=== PATIENT | female | born 1960 | race Caucasian/White ===

== ENCOUNTER → 2016-11-08 | Outpatient (CLI) | payer BC ==
--- NOTE | 2016-11-09 13:55 | MM ---
Reason for exam: screening (asymptomatic). Last mammogram was performed 1 year ago. History: Patient is postmenopausal and has history of other cancer at age 31. Physical Findings: A clinical breast exam by your physician is recommended on an annual basis and results should be correlated with mammographic findings. MG Screening Mammo w CAD Bilateral CC and MLO view(s) were taken. Prior study comparison: November 06, 2015, bilateral MG screening mammo w CAD. There are scattered fibroglandular densities. There is no discrete abnormality. ASSESSMENT: Negative, BI-RAD 1 RECOMMENDATION: Routine screening mammogram of both breasts in 1 year.
== END | disposition home or self-care (01) ==
LOC: RADMAMWWP 14:38
PROVIDERS: ATTEND Internal Medicine
DX: Z12.31 Encounter for screening mammogram for malignant neoplasm of breast (principal)

== ENCOUNTER → 2017-11-10 | Outpatient (CLI) | payer BC ==
--- NOTE | 2017-11-14 08:07 | MM ---
Reason for exam: screening (asymptomatic). Last mammogram was performed 1 year ago. History: Patient is postmenopausal and has history of other cancer at age 31. Physical Findings: A clinical breast exam by your physician is recommended on an annual basis and results should be correlated with mammographic findings. MG Screening Mammo w CAD Bilateral CC and MLO view(s) were taken. Prior study comparison: November 08, 2016, bilateral MG screening mammo w CAD. November 06, 2015, bilateral MG screening mammo w CAD. There are scattered fibroglandular densities. No significant changes when compared with prior studies. ASSESSMENT: Negative, BI-RAD 1 RECOMMENDATION: Routine screening mammogram of both breasts in 1 year.
== END ==
LOC: RADMAMWWP 08:41
PROVIDERS: ATTEND Internal Medicine
DX: Z12.31 Encounter for screening mammogram for malignant neoplasm of breast (principal)
CPT/HCPCS: 77067

== ENCOUNTER → 2019-12-11 | Outpatient (CLI) | payer BC ==
--- NOTE | 2019-12-12 14:54 | MM ---
Reason for exam: screening (asymptomatic). Last mammogram was performed 1 year and 1 month ago. History: Patient is postmenopausal and has history of other cancer at age 31. Physical Findings: A clinical breast exam by your physician is recommended on an annual basis and results should be correlated with mammographic findings. MG Screening Mammo w CAD Bilateral CC and MLO view(s) were taken. Prior study comparison: November 21, 2018, bilateral MG screening mammo w CAD. November 10, 2017, bilateral MG screening mammo w CAD. There are scattered fibroglandular densities. No significant changes when compared with prior studies. ASSESSMENT: Benign, BI-RAD 2 RECOMMENDATION: Routine screening mammogram of both breasts in 1 year.
== END | disposition home or self-care (01) ==
LOC: RADMAMWWP 13:07
PROVIDERS: ATTEND Internal Medicine
DX: Z12.31 Encounter for screening mammogram for malignant neoplasm of breast (principal)
CPT/HCPCS: 77067

== ENCOUNTER 2020-07-20 14:32 | Inpatient (IN) | payer BC ==
--- NOTE | 2020-07-20 14:53 | ED ---
SOB HPI - General Chief Complaint: Shortness of Breath Stated Complaint: +COVID, SOB Time Seen by Provider: 07/20/20 14:53 Source: patient Mode of arrival: ambulatory Limitations: no limitations - History of Present Illness Initial Comments: Layne is a previously healthy 60-year-old female who presents the ER today for evaluation of progressively worsening shortness of breath. Patient received her first COVID vaccine on July 11, she reports she began feeling sick around Tuesday the . She tested positive for COVID 19 on Tuesday and has had progressively worsening shortness of breath since that time. She reports subjective fevers body aches and generalized malaise. Denies any productive cough chest pain, nausea or vomiting. - Related Data Home Medications Medication Instructions Recorded Confirmed Amitriptyline HCl 25 mg PO HS 07/20/20 07/20/20 Ascorbic Acid [Vitamin C] 500 mg PO DAILY 07/20/20 07/20/20 Cholecalciferol [Vitamin D3 (25 25 mcg PO DAILY 07/20/20 07/20/20 Mcg = 1000 Iu)] Multivitamins, Thera [Multivitamin 1 tab PO DAILY 07/20/20 07/20/20 (formulary)] Pravastatin Sodium [Pravachol] 40 mg PO HS 07/20/20 07/20/20 SUMAtriptan succinate [Sumatriptan 100 mg PO DAILY PRN 07/20/20 07/20/20 Succinate] Vit C/E/Zn/Coppr/Lutein/Zeaxan 1 cap PO BID 07/20/20 07/20/20 [Preservision Areds 2 Softgel] Zinc 50 mg PO DAILY 07/20/20 07/20/20 Allergies Allergy/AdvReac Type Severity Reaction Status Date / Time No Known Allergies Allergy Verified 07/20/20 16:27 Review of Systems ROS Statement: Those systems with pertinent positive or pertinent negative responses have been documented in the HPI. ROS Other: All systems not noted in ROS Statement are negative. Past Medical History Past Medical History: Hyperlipidemia Additional Past Medical History / Comment(s): mirgains History of Any Multi-Drug Resistant Organisms: None Reported Past Surgical History: No Surgical Hx Reported Smoking Status: Former smoker Past Alcohol Use History: None Reported Past Drug Use History: None Reported General Exam - General Exam Comments Initial Comments: Physical Exam GENERAL: Ill appearing female HENT: Normocephalic, Atraumatic. EYES: PERRL, EOMI PULMONARY: Tachypnea CARDIOVASCULAR: RRR ABDOMEN: Soft and nontender with normal bowel sounds. SKIN: Appears dehydrated : Deferred NEUROLOGIC: Patient is alert and oriented x3. Moving all extremities spontaneously MUSCULOSKELETAL: Normal extremities with adequate strength and full range of motion. No lower extremity swelling or edema. No calf tenderness. PSYCHIATRIC: Normal psychiatric evaluation. Limitations: no limitations Course Vital Signs 07/20/20 07/20/20 07/20/20 14:46 15:06 15:51 Temperature 99.1 F 100.6 F H Pulse Rate 102 H 92 Respiratory 18 18 Rate Blood Pressure 99/62 O2 Sat by Pulse 93 L 96 Oximetry 07/20/20 16:38 Temperature Pulse Rate 96 Respiratory 18 Rate Blood Pressure O2 Sat by Pulse 98 Oximetry Medical Decision Making - Medical Decision Making The patient was seen and evaluated history is obtained from patient healthy 60-year-old female with worsening COVID symptoms labs and imaging were ordered x-ray shows bilateral patchy infiltrate consistent with COVID pneumonia Given the patient's oxygen saturation of 93% on room air at rest, bilateral COVID pneumonia I do feel she is high risk for decompensation she is not a candidate for Bam due to having no comorbidities I would recommend admission for supplemental oxygenation and further treatment. This plan was discussed with the patient who is agreeable. Patient care was discussed with Dr. Rodrigues agrees with plan for admission, Decadron, Lovenox and Remdesivir - Lab Data Result diagrams: 07/20/20 15:28 07/20/20 15:28 Lab Results 07/20/20 07/20/20 07/20/20 Range/Units 15:28 15:28 16:07 WBC 4.1 (3.8-10.6) k/uL RBC 4.71 (3.80-5.40) m/uL Hgb 14.7 (11.4-16.0) gm/dL Hct 41.9 (34.0-46.0) % MCV 88.8 (80.0-100.0) fL MCH 31.1 (25.0-35.0) pg MCHC 35.0 (31.0-37.0) g/dL RDW 12.1 (11.5-15.5) % Plt Count 203 (150-450) k/uL MPV 6.9 Neutrophils % 73 % Lymphocytes % 20 % Monocytes % 4 % Eosinophils % 1 % Basophils % 1 % Neutrophils # 3.0 (1.3-7.7) k/uL Lymphocytes # 0.8 L (1.0-4.8) k/uL Monocytes # 0.2 (0-1.0) k/uL Eosinophils # 0.0 (0-0.7) k/uL Basophils # 0.0 (0-0.2) k/uL PT 10.8 (9.0-12.0) sec INR 1.0 (<1.2) APTT 22.4 (22.0-30.0) sec D-Dimer 0.71 H (<0.60) mg/L FEU Sodium 135 L (137-145) mmol/L Potassium 4.1 (3.5-5.1) mmol/L Chloride 97 L (98-107) mmol/L Carbon Dioxide 28 (22-30) mmol/L Anion Gap 10 mmol/L BUN 16 (7-17) mg/dL Creatinine 0.85 (0.52-1.04) mg/dL Est GFR (CKD-EPI)AfAm 86 (>60 ml/min/1.73 sqM) Est GFR (CKD-EPI)NonAf 75 (>60 ml/min/1.73 sqM) Glucose 116 H (74-99) mg/dL Plasma Lactic Acid Caden (0.7-2.0) mmol/L Calcium 8.9 (8.4-10.2) mg/dL Magnesium 2.0 (1.6-2.3) mg/dL Total Bilirubin 0.6 (0.2-1.3) mg/dL AST 71 H (14-36) U/L ALT 47 H (4-34) U/L Alkaline Phosphatase 80 (38-126) U/L Lactate Dehydrogenase (313-618) U/L C-Reactive Protein (<10.0) mg/L Total Protein 7.2 (6.3-8.2) g/dL Albumin 3.8 (3.5-5.0) g/dL 07/20/20 07/20/20 Range/Units 16:07 16:15 WBC (3.8-10.6) k/uL RBC (3.80-5.40) m/uL Hgb (11.4-16.0) gm/dL Hct (34.0-46.0) % MCV (80.0-100.0) fL MCH (25.0-35.0) pg MCHC (31.0-37.0) g/dL RDW (11.5-15.5) % Plt Count (150-450) k/uL MPV Neutrophils % % Lymphocytes % % Monocytes % % Eosinophils % % Basophils % % Neutrophils # (1.3-7.7) k/uL Lymphocytes # (1.0-4.8) k/uL Monocytes # (0-1.0) k/uL Eosinophils # (0-0.7) k/uL Basophils # (0-0.2) k/uL PT (9.0-12.0) sec INR (<1.2) APTT (22.0-30.0) sec D-Dimer (<0.60) mg/L FEU Sodium (137-145) mmol/L Potassium (3.5-5.1) mmol/L Chloride (98-107) mmol/L Carbon Dioxide (22-30) mmol/L Anion Gap mmol/L BUN (7-17) mg/dL Creatinine (0.52-1.04) mg/dL Est GFR (CKD-EPI)AfAm (>60 ml/min/1.73 sqM) Est GFR (CKD-EPI)NonAf (>60 ml/min/1.73 sqM) Glucose (74-99) mg/dL Plasma Lactic Acid Caden 1.1 (0.7-2.0) mmol/L Calcium (8.4-10.2) mg/dL Magnesium (1.6-2.3) mg/dL Total Bilirubin (0.2-1.3) mg/dL AST (14-36) U/L ALT (4-34) U/L Alkaline Phosphatase (38-126) U/L Lactate Dehydrogenase 1046 H (313-618) U/L C-Reactive Protein 59.4 H (<10.0) mg/L Total Protein (6.3-8.2) g/dL Albumin (3.5-5.0) g/dL - EKG Data -: EKG Interpreted by Oh EKG Comments: EKG obtained due to complaint of shortness of breath, EKG was obtained at 1511, rate is 88 rhythm is sinus normal axis normal intervals no acute ST elevations or depressions or evidence of acute ischemia or infarction. Respiratory artifact was noted. Disposition Clinical Impression: COVID-19 Disposition: ADMITTED IP TO THIS HOSP Condition: Serious Is patient prescribed a controlled substance at d/c from ED?: No Referrals: Nataly العلي MD [Primary Care Provider] - 1-2 days
[2020-07-20] MEDS ORDERED: SODIUM CHLORIDE 0.9% 1,000 ML IV STA (15:12)
[2020-07-20 15:35] LABS: Basophils % (A) 1 %; Eosinophils % (A) 1 %; HCT 41.9 % (34.0-46.0); HGB 14.7 gm/dL (11.4-16.0); Lymphocytes # (A) 0.8 k/uL (1.0-4.8); Lymphocytes % (A) 20 %; MCH 31.1 pg (25.0-35.0); MCV 88.8 fL (80.0-100.0); Mean Platelet Volume 6.9; Monocytes # (A) 0.2 k/uL (0-1.0); Monocytes % (A) 4 %; Neutrophils % (A) 73 %; Platelet Count 203 k/uL (150-450); RBC 4.71 m/uL (3.80-5.40); RDW 12.1 % (11.5-15.5); WBC 4.1 k/uL (3.8-10.6)
[2020-07-20 15:46] LABS: Albumin 3.8 g/dL (3.5-5.0); Calcium 8.9 mg/dL (8.4-10.2); Potassium 4.1 mmol/L (3.5-5.1); Total Bilirubin 0.6 mg/dL (0.2-1.3); Total Protein 7.2 g/dL (6.3-8.2)
--- NOTE | 2020-07-20 15:50 | XR ---
EXAMINATION TYPE: XR chest 1V portable DATE OF EXAM: 07/20/2020 COMPARISON: NONE HISTORY: Short of breath TECHNIQUE: Single view FINDINGS: There is bilateral patchy interstitial and airspace infiltrates in upper and lower lobes. T here is more density in the right upper lobe and left lower lobe. Heart size is normal. There are no hilar masses. There is no heart failure. There is no sign of pleural effusion. IMPRESSION: Bilateral patchy pneumonia. Normal heart.
[2020-07-20 16:30] LABS: C Reactive Protein 59.4 mg/L (<10.0)
[2020-07-20 16:31] LABS: Partial Thromboplastin Time 22.4 sec (22.0-30.0); Prothrombin Time 10.8 sec (9.0-12.0)
[2020-07-20] MEDS ORDERED: ACETAMINOPHEN TAB 325 MG TAB PO PRN (16:34)
[2020-07-20] MEDS ORDERED: IBUPROFEN 400 MG TAB PO PRN (16:34)
[2020-07-20] MEDS ORDERED: NALOXONE 0.4 MG/ML 1 ML VIAL IV PRN (16:34)
[2020-07-20 16:42] LABS: D-Dimer 0.71 mg/L FEU (<0.60)
[2020-07-20] MEDS: DEXAMETHASONE SOD PHOSPHATE 10 MG/ML 1 ML VIAL IV SCH (16:49)
[2020-07-20] MEDS: PRAVASTATIN SODIUM 40 MG TAB PO SCH (21:39)
[2020-07-20] MEDS: AMITRIPTYLINE HCL 25 MG TAB PO SCH (21:39)
[2020-07-21] MEDS: DEXAMETHASONE SOD PHOSPHATE 10 MG/ML 1 ML VIAL IV SCH (08:45)
[2020-07-21] MEDS ORDERED: ZINC SULFATE 220 MG CAP PO SCH (09:00)
[2020-07-21] MEDS ORDERED: ENOXAPARIN 80 MG/0.8 ML SYRINGE SQ SCH (09:00)
[2020-07-21] MEDS ORDERED: ASCORBIC ACID 500 MG TAB PO SCH (09:00)
[2020-07-21 10:39] VITALS: RESP 16
[2020-07-21 10:40] LABS: Ferritin 638.2 ng/mL (10.0-291.0)
[2020-07-21] MEDS ORDERED: REMDESIVIR 200 MG in SODIUM CHLORIDE 0.9% 250 ML IVPB ONE (12:00)
[2020-07-21] MEDS: FAMOTIDINE 20 MG TAB PO SCH ×2 (12:25→20:39)
[2020-07-21] MEDS ORDERED: SUMAtriptan succinate 50 MG TAB PO PRN (13:11)
--- NOTE | 2020-07-21 13:12 | P.HPIM ---
History of Present Illness Layne is a previously healthy 60-year-old female who presents the ER for progressively worsening shortness of breath. Patient received her first COVID vaccine on July 11, she reports she began feeling sick around the . She tested positive for COVID 19 on Tuesday and has had progressively worsening shortness of breath since that time. She reports subjective fevers body aches and generalized malaise. Denies any productive cough chest pain, nausea or vomiting. Patient does have significant infiltrate bilaterally consistent with the Covid pneumonia. Patient had 1 episode of hypoxemia. Patient is not a candidate for monoclonal antibody or Remdesivir as the duration of symptoms side about 10 days. HEENT had elevated intermittent markers including d-dimer of 0.71. Patient had fevers last night. Review of Systems REVIEW OF SYSTEMS: CONSTITUTIONAL: As mentioned in HPI HEENT: No recent visual problems or hearing problems. Denied any sore throat. CARDIOVASCULAR: No chest pain, orthopnea, PND, no palpitations, no syncope. PULMONARY: no hemoptysis. GASTROINTESTINAL: No diarrhea, no nausea, no vomiting, no abdominal pain. NEUROLOGICAL: No headaches, no weakness, no numbness. HEMATOLOGICAL: Denies any bleeding or petechiae. GENITOURINARY: Denies any burning micturition, frequency, or urgency. MUSCULOSKELETAL/RHEUMATOLOGICAL: Denies any joint pain, swelling, or any muscle pain. ENDOCRINE: Denies any polyuria or polydipsia. The rest of the 14-point review of systems is negative. Past Medical History Past Medical History: Hyperlipidemia Additional Past Medical History / Comment(s): MIGRAINS History of Any Multi-Drug Resistant Organisms: None Reported Past Surgical History: No Surgical Hx Reported Past Anesthesia/Blood Transfusion Reactions: No Reported Reaction Smoking Status: Never smoker Past Alcohol Use History: None Reported Past Drug Use History: None Reported Medications and Allergies Home Medications Medication Instructions Recorded Confirmed Type Amitriptyline HCl 25 mg PO HS 07/20/20 07/20/20 History Ascorbic Acid [Vitamin C] 500 mg PO DAILY 07/20/20 07/20/20 History Cholecalciferol [Vitamin D3 (25 25 mcg PO DAILY 07/20/20 07/20/20 History Mcg = 1000 Iu)] Multivitamins, Thera [Multivitamin 1 tab PO DAILY 07/20/20 07/20/20 History (formulary)] Pravastatin Sodium [Pravachol] 40 mg PO HS 07/20/20 07/20/20 History SUMAtriptan succinate [Sumatriptan 100 mg PO DAILY PRN 07/20/20 07/20/20 History Succinate] Vit C/E/Zn/Coppr/Lutein/Zeaxan 1 cap PO BID 07/20/20 07/20/20 History [Preservision Areds 2 Softgel] Zinc 50 mg PO DAILY 07/20/20 07/20/20 History Allergies Allergy/AdvReac Type Severity Reaction Status Date / Time No Known Allergies Allergy Verified 07/20/20 16:27 Physical Exam Vitals: Vital Signs Temp Pulse Pulse Resp BP BP Pulse Ox 07/21/20 12:15 96 07/21/20 10:38 97.7 F 80 16 125/83 93 L 07/21/20 09:07 20 07/21/20 05:35 97.9 F 79 20 114/73 95 07/21/20 02:00 97.3 F L 71 20 120/71 95 07/20/20 22:00 98.2 F 80 20 110/71 97 07/20/20 19:50 20 07/20/20 17:23 99.0 F 88 16 112/74 96 07/20/20 16:52 101.6 F H 98 18 115/90 96 07/20/20 16:38 96 18 98 07/20/20 15:51 92 18 96 07/20/20 15:06 100.6 F H 07/20/20 14:46 99.1 F 102 H 18 99/62 93 L Intake and Output 07/20/20 07/21/20 07/21/20 22:59 06:59 14:59 Intake Total 100 200 Balance 100 200 Intake: Oral 100 200 Other: Voiding Method Toilet Toilet # Voids 1 1 1 Weight 78.471 kg PHYSICAL EXAMINATION: GENERAL: The patient is alert and oriented x3, not in any acute distress. Well developed, well nourished. HEENT: Pupils are round and equally reacting to light. EOMI. No scleral icterus. No conjunctival pallor. Normocephalic, atraumatic. No pharyngeal erythema. No thyromegaly. CARDIOVASCULAR: S1 and S2 present. No murmurs, rubs, or gallops. PULMONARY: Chest is clear to auscultation, no wheezing or crackles. ABDOMEN: Soft, nontender, nondistended, normoactive bowel sounds. No palpable organomegaly. MUSCULOSKELETAL: No joint swelling or deformity. EXTREMITIES: No cyanosis, clubbing, or pedal edema. NEUROLOGICAL: Gross neurological examination did not reveal any focal deficits. SKIN: No rashes. Note: Because of COVID 19 isolation, some of the history and physical exam findings are indirect and obtained from nursing staff, and other physician examinations to avoid unnecessary contact with the patient. Results CBC & Chem 7: 07/20/20 15:28 07/20/20 15:28 Labs: Abnormal Lab Results - Last 24 Hours (Table) 07/20/20 07/20/20 07/20/20 Range/Units 15:28 15: 16:07 Lymphocytes # 0.8 L (1.0-4.8) k/uL D-Dimer 0.71 H (<0.60) mg/L FEU Sodium 135 L (137-145) mmol/L Chloride 97 L (98-107) mmol/L Glucose 116 H (74-99) mg/dL Ferritin (10.0-291.0) ng/mL AST 71 H (14-36) U/L ALT 47 H (4-34) U/L Lactate Dehydrogenase (313-618) U/L C-Reactive Protein (<10.0) mg/L Coronavirus (PCR) (Not Detectd) 07/20/20 07/20/20 Range/Units 16:07 16:20 Lymphocytes # (1.0-4.8) k/uL D-Dimer (<0.60) mg/L FEU Sodium (137-145) mmol/L Chloride (98-107) mmol/L Glucose (74-99) mg/dL Ferritin 638.2 H (10.0-291.0) ng/mL AST (14-36) U/L ALT (4-34) U/L Lactate Dehydrogenase 1046 H (313-618) U/L C-Reactive Protein 59.4 H (<10.0) mg/L Coronavirus (PCR) Detected A (Not Detectd) Thrombosis Risk Factor Assmnt - Choose All That Apply Each Factor Represents 1 point: Age 41-60 years, Obesity (BMI >25) Other Risk Factors: Yes Each Risk Factor Represents 3 Points: Family history of DVT/PE Thrombosis Risk Factor Assessment Total Risk Factor Score: 5 Thrombosis Risk Factor Assessment Level: High Risk Assessment and Plan Plan: -Covid 19 pneumonia: Continue with the Decadron 6 mg, Pepcid, Lovenox continue to monitor intermittent markers. Patient will be monitored overnight for any episodes of hypoxemia most probably will be discharged tomorrow. Patient is on zinc Victor cutback acid and vitamin D supplementation and she'll be continued -Systemic incremental response syndrome secondary to her pneumonia as mentioned above -Hyperlipidemia -History of migraines patient was resumed on her home regimen
--- NOTE | 2020-07-21 15:32 | CONS ---
CONSULTATION DATE OF SERVICE: 07/21/2020 REASON FOR CONSULTATION: COVID-19 infection. HISTORY OF PRESENT ILLNESS: The patient is a 60-year-old female with a past medical history significant for hyperlipidemia, migraines, did get her first Covid vaccine on July 11. The patient mentioned that evening, she started having symptoms mostly with weakness, lethargic, no energy. Her symptoms continued to get worse the next few days and the patient did have a Covid done on the which came back positive. No specific treatment was provided to the patient. The patient initially did okay. However, for the last day or 2, the patient started having a problem with increasing shortness of breath on minimal exertion. She continued to have significant weakness. The patient did have a cough which is moderate intensity, not bringing up any sputum. No pleuritic chest pain. No nausea, no vomiting. No abdominal pain. Did have some diarrhea. With these symptoms, the patient was evaluated by the ER physician. On arrival to the ER, the patient did have a low grade fever of 100. Subsequently did spike a fever of 101.6. The patient had been maintaining her O2 sats 93-97 percent on room air. This morning one of the O2 sats was miss reported as 88% on room air. Subsequently has been and is currently 96% on room air. The patient did have a normal white count with lymphopenia. D-dimer was mildly elevated at 0.71. Liver enzymes mildly elevated. Cates PCR is positive. Chest x-ray, patchy bilateral pneumonia. The patient has been admitted to the hospital. Infectious Disease was consulted for further management. REVIEW OF SYSTEMS: Positive points have been mentioned in HPI. Rest of systems are negative. PAST MEDICAL HISTORY: Hyperlipidemia, migraine headache. PAST SURGICAL HISTORY: No surgeries. SOCIAL HISTORY: Remote history of smoking. No drinking or drug use. FAMILY HISTORY: No pertinent findings noticed. ALLERGIES: No known drug allergies. MEDICATIONS: The patient is currently on Tylenol, Elavil, vitamin C, Decadron, Lovenox, Pepcid, Motrin, Narcan, Pravachol and zinc. PHYSICAL EXAMINATION: Blood pressure 125/83 with a pulse of 80, temperature 97.7. She is 96% on room air. General description: The patient is a middle-aged female up in the bed in no distress. No tachypnea or accessory muscles of respiration use. HEENT: Examination shows no pallor or scleral icterus. Oral mucous membranes dry. No pharyngeal erythema or thrush. NECK: Trachea central. No thyromegaly. LUNGS: Unlabored breathing, decreased intense breath sounds. No wheeze or crackles. Heart S1, S2. Regular rate and rhythm. ABDOMEN: Soft, no tenderness. No guarding. No rigidity. EXTREMITIES: No edema of the feet. SKIN examination: No rash or mass palpable. NEUROLOGICAL: Patient is awake, alert, oriented times three. Mood and affect normal. LABS: Hemoglobin 14.4, white count 5.41. BUN of 16, creatinine 0.85, inflammatory markers are elevated. DIAGNOSTIC IMPRESSION AND PLAN: Patient with acute COVID-19 infection, pneumonia in this patient whose symptoms have been going on for about 10 days now. Patient seemed to have mild symptoms, not hypoxic to qualify for Remdesivir therapy and her symptoms also have been on July 11 almost 10 days ago. PLAN: 1. No need for Remdesivir. 2. Patient will be treated with Lovenox, Dexamethasone, zinc and ascorbic acid. 3. If the patient remains to be febrile and no need for supplemental oxygen, he will be able to go home in the morning. 4. Discussed with admitting physician. Thank you for this consultation. Will follow this patient along with you. MMODL / IJN: [id number] /
[2020-07-21] MEDS: PRAVASTATIN SODIUM 40 MG TAB PO SCH (20:39)
[2020-07-21] MEDS: AMITRIPTYLINE HCL 25 MG TAB PO SCH (20:39)
[2020-07-22] MEDS: DEXAMETHASONE SOD PHOSPHATE 10 MG/ML 1 ML VIAL IV SCH (07:28)
[2020-07-22] MEDS: FAMOTIDINE 20 MG TAB PO SCH (07:29)
[2020-07-22] MEDS ORDERED: ASCORBIC ACID 500 MG TAB PO SCH (09:00)
[2020-07-22] MEDS ORDERED: ZINC SULFATE 220 MG CAP PO SCH (09:00)
[2020-07-22] MEDS ORDERED: CHOLECALCIFEROL 25 MCG (1000 IU) TABLET PO SCH (09:00)
[2020-07-22] MEDS ORDERED: ENOXAPARIN 40 MG/0.4 ML SYRINGE SQ SCH (09:00)
[2020-07-22] MEDS ORDERED: REMDESIVIR 100 MG in SODIUM CHLORIDE 0.9% 250 ML IVPB SCH (12:00)
[2020-07-22 12:13] VITALS: BP 126/77; PULSE 60; TEMP 98.1
--- NOTE | 2020-07-22 15:48 | P.DS ---
Providers Date of admission: 07/20/20 16:34 Expected date of discharge: 07/22/20 Attending physician: Fermín Rodrigues Consults: 07/20/20 16:34 Consult Physician Urgent Consulting Provider: Lexie Egan Consult Reason/Comments: covid Do you want consulting provider notified?: Yes Primary care physician: Nataly العلي Hospital Course: Final diagnosis -Covid 19 pneumonia -Systemic inflammatory response syndrome secondary to her pneumonia as mentioned above -Hyperlipidemia -History of migraines -Full code Discharge disposition Patient is being discharged in a stable condition with guarded prognosis to home. Patient will follow-up with Dr. العلي in the outpatient setting upon discharge. Patient is to continue with oxygen 2 L via nasal cannula upon discharge. Patient instructed to follow-up with pulmonary in the outpatient setting in 3-4 weeks. Total time taken is greater than 35 minutes. Hospital course Layne is a previously healthy 60-year-old female who presents the ER for progressively worsening shortness of breath. Patient received her first COVID vaccine on July 11, she reports she began feeling sick around Tuesday the . She tested positive for COVID 19 on Tuesday and has had progressively worsening shortness of breath since that time. She reports subjective fevers body aches and generalized malaise. Denies any productive cough chest pain, nausea or vomiting. Patient does have significant infiltrate bilaterally consistent with the Covid pneumonia. Patient had 1 episode of hypoxemia. Patient is not a candidate for monoclonal antibody or Remdesivir as the duration of symptoms side about 10 days. Patient had elevated intermittent markers including d-dimer of 0.71. Patient had fevers last night. 07/22/2020 Patient is seen and evaluated in follow-up stating she is feeling better shortness of breath has improved. Patient did undergo home O2 evaluation and was found to desaturate to 86% with minimal exertion and when resting oxygen saturations increased to 91%. Case management following and was given a prescription for oxygen therapy secondary to Covid 19. Patient will follow-up with pulmonary in the outpatient setting and instructed to continue using incentive spirometer at least 10 times every hour while awake and wean oxygen as tolerated. Patient also instructed to follow-up with primary care provider upon discharge. Continue on dexamethasone along with zinc and vitamin supplements upon discharge. Currently no reports of chest pain, worsening shortness of breath, or palpitations. Patient is afebrile. No reports of nausea or vomiting and patient is tolerating diet. Patient will be discharged home today. On exam vital signs are stable. Patient had home O2 evaluation done and oxygen saturation with exertion was 86% and placed on 2 L and increased and improved to 91-92%. She we'll continue with home oxygen upon discharge in case management making arrangements for this. Patient will follow up with pulmonary in the next 3-4 weeks and instructed to wean off oxygen as tolerated. Cardio S1, S2 are muffled. Respiratory system shows diminished breath sounds at the bases with no wheezing or rhonchi noted. Abdomen is soft and nontender. Nervous system shows no focal deficits. Please refer to medication reconciliation sheet for a list of medications. Patient Condition at Discharge: Stable Plan - Discharge Summary New Discharge Prescriptions: New Dexamethasone 6 mg PO DAILY 7 Days #7 tablet Ibuprofen [Motrin] 400 mg PO Q6HR PRN #30 tab PRN Reason: Mild Pain Or Fever > 100.5 Zinc Sulfate [Orazinc] 220 mg PO DAILY 30 Days #30 cap Famotidine [Pepcid] 20 mg PO BID 15 Days #30 tab Acetaminophen Tab [Tylenol] 650 mg PO Q6HR PRN #30 tab PRN Reason: Mild Pain Or Fever > 100.5 Continue Amitriptyline HCl 25 mg PO HS Ascorbic Acid [Vitamin C] 500 mg PO DAILY Cholecalciferol [Vitamin D3 (25 Mcg = 1000 Iu)] 25 mcg PO DAILY Multivitamins, Thera [Multivitamin (formulary)] 1 tab PO DAILY Pravastatin Sodium [Pravachol] 40 mg PO HS SUMAtriptan succinate [Sumatriptan Succinate] 100 mg PO DAILY PRN PRN Reason: Migraine Headache Vit C/E/Zn/Coppr/Lutein/Zeaxan [Preservision Areds 2 Softgel] 1 cap PO BID Discontinued Zinc 50 mg PO DAILY Discharge Medication List Amitriptyline HCl 25 mg PO HS 07/20/20 [History] Ascorbic Acid [Vitamin C] 500 mg PO DAILY 07/20/20 [History] Cholecalciferol [Vitamin D3 (25 Mcg = 1000 Iu)] 25 mcg PO DAILY 07/20/20 [History] Multivitamins, Thera [Multivitamin (formulary)] 1 tab PO DAILY 07/20/20 [History] Pravastatin Sodium [Pravachol] 40 mg PO HS 07/20/20 [History] SUMAtriptan succinate [Sumatriptan Succinate] 100 mg PO DAILY PRN 07/20/20 [History] Vit C/E/Zn/Coppr/Lutein/Zeaxan [Preservision Areds 2 Softgel] 1 cap PO BID 07/20/20 [History] Acetaminophen Tab [Tylenol] 650 mg PO Q6HR PRN #30 tab 07/22/20 [Rx] Dexamethasone 6 mg PO DAILY 7 Days #7 tablet 07/22/20 [Rx] Famotidine [Pepcid] 20 mg PO BID 15 Days #30 tab 07/22/20 [Rx] Ibuprofen [Motrin] 400 mg PO Q6HR PRN #30 tab 07/22/20 [Rx] Zinc Sulfate [Orazinc] 220 mg PO DAILY 30 Days #30 cap 07/22/20 [Rx] Follow up Appointment(s)/Referral(s): [facility] [NON-STAFF] - As Needed (oxygen ) Nataly العلي MD [Primary Care Provider] - 07/24/20 1:00 pm (This will be a virtual visit. Please call office when you get home) Priscilla Menchaca MD [STAFF PHYSICIAN] - 08/27/20 2:30 pm (With Katie) Patient Instructions/Handouts: Coronavirus Disease 2019 (COVID-19) Activity/Diet/Wound Care/Special Instructions: Activity Limited until follow-up Follow-up with primary care provider upon discharge Continue with dexamethasone for the next 1 week until finished Continue vitamin supplements Continue with incentive spirometer at least 10 times every hour while awake Continue with oxygen and wean as tolerated and follow up with pulmonary outpatient in the next 2-3 weeks Continue to isolate and wear masks and frequent handwashing until symptom-free for 3 days Continue current diet Encourage fluids and rest Continue to monitor for fever and treat with Tylenol and/or Motrin Discharge Disposition: HOME SELF-CARE
--- NOTE | 2020-07-22 15:50 | PN ---
PROGRESS NOTE DATE OF SERVICE: 07/22/2020 REASON FOR FOLLOWUP: COVID-19 pneumonia. INTERVAL HISTORY: The patient is currently afebrile. Patient is feeling better. She is breathing comfortably. The patient did have an oxygen level drop to 93 on room air and on exertion was 86%. However, the patient is feeling better and wants to go home. Denies having any chest pain or shortness of breath. Occasional cough. No abdominal pain. No diarrhea. PHYSICAL EXAMINATION: Blood pressure 126/77 with pulse of 60, temperature 98.1. She is 93% on room air. General description is a middle-aged female lying in bed in no distress. RESPIRATORY SYSTEM: Unlabored breathing with no wheeze. HEART: S1, S2. Regular rate and rhythm. ABDOMEN: Soft, no tenderness. LABS: No new labs have been obtained today. DIAGNOSTIC IMPRESSION AND PLAN: Patient with acute COVID-19 pneumonia in this patient who presented to hospital 2 weeks post initial start of symptoms and did not qualify for the remdesivir or monoclonal antibody. She is on dexamethasone that can be transitioned to oral on discharge and short course of either aspirin or anticoagulation. All her questions and concerns were answered. MMODL / IJN: [id number] /
== END 2020-07-22 15:26 | disposition home or self-care (01) | DRG 177 ==
LOC: EC 14:32 → 4SSUR 16:34
PROVIDERS: ADMIT Internal Medicine; ATTEND Internal Medicine
PROC: XW033E5 Introduction of Remdesivir Anti-infective into Peripheral Vein, Percutaneous Approach, New Technology Group 5 (ICD-10-PCS; principal; 2020-07-21)
DX: U07.1 COVID-19 (principal); J12.82 Pneumonia due to coronavirus disease 2019; E78.5 Hyperlipidemia, unspecified; R09.02 Hypoxemia; D72.810 Lymphocytopenia; G43.909 Migraine, unspecified, not intractable, without status migrainosus; Z79.899 Other long term (current) drug therapy; Z87.891 Personal history of nicotine dependence
CPT/HCPCS: 36415; 71045; 80053; 82728; 83605; 83615; 83735; 84145; 85025; 85379; 85610; 85730; 86140; 87635; 93005; 96360; 99285

== ENCOUNTER → 2020-12-17 | Outpatient (CLI) | payer BC ==
--- NOTE | 2020-12-18 09:59 | MM ---
Reason for exam: screening (asymptomatic). Last mammogram was performed 1 year ago. History: Patient is postmenopausal and has history of other cancer at age 31. Physical Findings: A clinical breast exam by your physician is recommended on an annual basis and results should be correlated with mammographic findings. MG Screening Mammo w CAD Bilateral CC and MLO view(s) were taken. Prior study comparison: December 11, 2019, bilateral MG screening mammo w CAD. November 21, 2018, bilateral MG screening mammo w CAD. There are scattered fibroglandular densities. There is no discrete abnormality. No significant changes when compared with prior studies. ASSESSMENT: Negative, BI-RAD 1 RECOMMENDATION: Routine screening mammogram of both breasts in 1 year.
== END | disposition home or self-care (01) ==
LOC: RADMAMWWP 12:49
PROVIDERS: ATTEND Internal Medicine
DX: Z12.31 Encounter for screening mammogram for malignant neoplasm of breast (principal); Z78.0 Asymptomatic menopausal state
CPT/HCPCS: 77067

== ENCOUNTER → 2021-12-22 | Outpatient (CLI) | payer BC ==
--- NOTE | 2021-12-23 16:44 | MM ---
Reason for Exam: Screening (asymptomatic). Last screening mammogram was performed 12 month(s) ago. Patient History: Menarche at age 12. First Full-Term at age 23. Postmenopausal. Other cancer, age 31. Risk Values: Shayy 5 year model risk: 1.3%. NCI Lifetime model risk: 6.4%. Prior Study Comparison: 11/21/2018 Bilateral Screening Mammogram, [facility]. 12/11/2019 Bilateral Screening Mammogram, [facility]. 12/17/2020 Bilateral Screening Mammogram, [facility]. Tissue Density: There are scattered fibroglandular densities. Findings: Analyzed By CAD. There is no suspicious group of microcalcifications or new suspicious mass in either breast. No significant change from prior studies. Overall Assessment: Negative, BI-RAD 1 Management: Screening Mammogram of both breasts in 1 year. A clinical breast exam by your physician is recommended on an annual basis and results should be correlated with mammographic findings. Electronically signed and approved by: Ishan Darby D.O.
== END | disposition home or self-care (01) ==
LOC: RADMAMWWP 10:51
PROVIDERS: ATTEND Family Medicine
DX: Z12.31 Encounter for screening mammogram for malignant neoplasm of breast (principal); Z78.0 Asymptomatic menopausal state
CPT/HCPCS: 77067

== ENCOUNTER → 2022-12-23 | Outpatient (CLI) | payer BC ==
--- NOTE | 2022-12-24 19:01 | MM ---
Reason for Exam: Screening (asymptomatic). Last screening mammogram was performed 12 month(s) ago. Patient History: Menarche at age 12. First Full-Term at age 23. Postmenopausal. Risk Values: Shayy 5 year model risk: 1.4%. NCI Lifetime model risk: 6.2%. Prior Study Comparison: 12/11/2019 Bilateral Screening Mammogram, [facility]. 12/17/2020 Bilateral Screening Mammogram, [facility]. 12/22/2021 Bilateral MG screening mammo w CAD, [facility]. Tissue Density: There are scattered fibroglandular densities. Findings: Analyzed By CAD. There is no suspicious group of microcalcifications or new suspicious mass in either breast. Overall Assessment: Negative, BI-RAD 1 Management: Screening Mammogram of both breasts in 1 year. . Patient should continue monthly self-breast exams. A clinical breast exam by your physician is recommended on an annual basis. This exam should not preclude additional follow-up of suspicious palpable abnormalities. Note on Shayy scores and lifetime risk: 1. A Shayy score greater than 3% is considered moderate risk. If this is the case, consider specialist referral to assess eligibility for a risk reducing agent. 2. If overall lifetime risk for the development of breast cancer is 20% or higher, the patient may qualify for future screening with alternating mammogram and breast MRI. Electronically signed and approved by: Izabel Pham M.D. Radiologist
== END | disposition home or self-care (01) ==
LOC: RADMAMWWP 10:46
PROVIDERS: ATTEND Family Medicine
DX: Z12.31 Encounter for screening mammogram for malignant neoplasm of breast (principal); Z78.0 Asymptomatic menopausal state
CPT/HCPCS: 77067

== ENCOUNTER → 2024-01-02 | Outpatient (CLI) | payer BC ==
--- NOTE | 2024-01-25 19:15 | MM ---
Reason for Exam: Screening (asymptomatic). Last mammogram was performed 1 year(s) and 1 month(s) ago. Patient History: Menarche at age 12. First Full-Term at age 23. Postmenopausal. Risk Values: Shayy 5 year model risk: 1.4%. NCI Lifetime model risk: 6.0%. Prior Study Comparison: 12/17/2020 Bilateral Screening Mammogram, [facility]. 12/22/2021 Bilateral MG screening mammo w CAD, [facility]. 12/23/2022 Bilateral MG screening mammo w CAD, [facility]. Tissue Density: There are scattered areas of fibroglandular density. Findings: Analyzed By CAD. There is no suspicious group of microcalcifications or new suspicious mass in either breast. There are a few benign secretory calcifications noted. Overall Assessment: Benign, BI-RAD 2 Management: Screening Mammogram of both breasts in 1 year. . Patient should continue monthly self-breast exams. A clinical breast exam by your physician is recommended on an annual basis. This exam should not preclude additional follow-up of suspicious palpable abnormalities. Note on Shayy scores and lifetime risk: 1. A Shayy score greater than 3% is considered moderate risk. If this is the case, consider specialist referral to assess eligibility for a risk reducing agent. 2. If overall lifetime risk for the development of breast cancer is 20% or higher, the patient may qualify for future screening with alternating mammogram and breast MRI. Electronically signed and approved by: Izabel Pham M.D. Radiologist
== END | disposition home or self-care (01) ==
LOC: RADMAMWWP 12:01
PROVIDERS: ATTEND Family Medicine
DX: Z12.31 Encounter for screening mammogram for malignant neoplasm of breast
CPT/HCPCS: 29540; 73502; 73620; 77063; 77067; 99213